=== PATIENT | female | born 1970 | race Caucasian/White ===

== ENCOUNTER 2017-03-21 17:24 | Emergency (ER) | payer BC ==
[~2017-03-21 17:24] MED LIST: ADVIL200 M1 PO; ALBUTEROL0.83 MG/ML INH; BACTRIM1 TAB PO; FLOVENT HFA1 PUF1 INH; NORCO 5-325 TA1 EACH PO; NORCO 5/325 TAB1 TAB PO; PREDNISONE10 M1 PO; PREDNISONE20 MG PO; PRILOSEC20 M1 PO; PROAIR HFA8.5 GM INH; SIMVASTATIN20 M1 PO; SPIRIVA18 MCG IH; TRAMADOL HCL50 M2 PO; TYLENOL325 M2 PO; XOPENEX HFA15 GM IH; ZOLOFT100 M1 PO
[2017-03-21] MEDS ORDERED: GLUCOPHAGE500 M3 PO (17:49)
[2017-03-21] MEDS ORDERED: BACTRIM DS TAB1 EAC2 PO (17:50)
[2017-03-21] MEDS ORDERED: ADVAIR 25028 BLISTE1 PO (17:50)
[2017-03-21] MEDS ORDERED: KLONOPIN0.5 M1 PO (17:51)
[2017-03-21 18:30] LABS: KETONE-BETA (WHOLE BLOOD) 0.1 mmol/L (0.0-0.6)
[2017-03-21 18:34] LABS: BASO % 0.7 % (0-2); BASO ABSOLUTE COUNT 0.1 tho/cmm (0.0-0.2); EOS % 2.3 % (0-7); EOSINOPHIL ABSOLUTE COUNT 0.2 tho/cmm (0.0-0.7); HCT-HEMATOCRIT 41.4 % (34.0-49.0); HGB-HEMOGLOBIN 14.3 gm/dl (12.0-15.5); LYMPH % 26.3 % (20-45); MCH (MEAN CORPUSCULAR HGB) 29.4 pg (28.0-32.0); MCHC MEAN CORPUSCULAR HGB CONC 34.5 % (32.0-36.0); MEAN PLATELET VOLUME 10.8 cmc (9.4-12.4); MONO % 6.7 % (0-12); MONOCYTE ABSOLUTE COUNT 0.5 tho/cmm (0.0-1.2); NEUTROPHIL ABSOLUTE COUNT 4.8 tho/cmm (1.6-8.0); NEUTROPHIL-AUTOMATED 4.8 tho/cmm (1.6-8.0); PLATELET COUNT 265 tho/cmm (150-450); RED BLOOD COUNT 4.87 mil/cmm (4.00-5.20); RED CELL DISTRIBUTION WIDTH 12.9 % (12.4-16.4); WHITE BLOOD COUNT 7.5 tho/cmm (4.0-10.0)
[2017-03-21 18:47] LABS: ALB/GLOB RATIO 1.1 (0.8-2.0); ALBUMIN 3.7 g/dl (3.5-5.0); ALKALINE PHOSPHATASE 85 U/L (33-138); ALT/SGPT 54 U/L (12-78); BILIRUBIN,TOTAL 0.3 mg/dl (0-1.5); BLOOD UREA NITROGEN 10 mg/dl (6-24); CALCIUM 9.1 mg/dl (8.5-10.5); CARBON DIOXIDE-VENOUS 20 mmol/L (22-32); CHLORIDE 101 mmol/l (96-110); CREATININE 1.16 mg/dl (0.50-1.10); GLUCOSE 447 mg/dL (70-110); LIPASE 150 U/L (73-393); SODIUM 134 mmol/L (135-145); eGFR VALUE FOR BLACK 64 mL/Min
[2017-03-21 18:49] LABS: ANION GAP 17 mmol/L (0-20); AST/SGOT 47 U/L (10-40); POTASSIUM 4.2 mmol/L (3.7-5.1)
[2017-03-21 18:50] LABS: OSMOLALITY 297 mOsm/kg (275-295)
[2017-03-21 18:51] LABS: URINE BILIRUBIN NEGATIVE (NEG); URINE BLOOD NEGATIVE (NEG); URINE GLUCOSE (UA) LARGE (NEG); URINE KETONE NEGATIVE (NEG); URINE LEUKOCYTE ESTERASE NEGATIVE (NEG); URINE NITRITE NEGATIVE (NEG); URINE PROTEIN NEGATIVE (NEG)
[2017-03-21 18:56] LABS: URINE APPEARANCE CLEAR; URINE COLOR YELLOW
[2017-03-21 18:57] LABS: URINE EPITHELIAL CELLS 0 /[HPF] (0-10); URINE RBC 0-1 /[HPF] (0-5); URINE WBC 0-1 /[HPF] (0-5)
[2017-03-21] MEDS ORDERED: KEFLEX500 M4 PO (20:45)
[2017-03-21] MEDS ORDERED: NORCO 5-325 TA1 EACH PO (20:45)
== END 2017-03-21 21:18 ==
LOC: EDMED 17:24
PROVIDERS: Emergency Medicine
DX: E11.65 Type 2 diabetes mellitus with hyperglycemia (principal); N12 Tubulo-interstitial nephritis, not specified as acute or chronic; J44.9 Chronic obstructive pulmonary disease, unspecified; F31.9 Bipolar disorder, unspecified; K21.9 Gastro-esophageal reflux disease without esophagitis; Z88.0 Allergy status to penicillin; F17.200 Nicotine dependence, unspecified, uncomplicated; Z90.710 Acquired absence of both cervix and uterus; Z90.89 Acquired absence of other organs; Z98.890 Other specified postprocedural states
CPT/HCPCS: J0696; J2270; J2405; J7030